=== PATIENT | female | born 1995 | race Caucasian/White ===

== ENCOUNTER 2021-08-14 12:26 | Emergency (ER) | payer OTHER ==
[~2021-08-14] VITALS: Ht 165.1 cm; Wt 70.3 kg
[2021-08-14 12:37] VITALS: BP 125/87
[2021-08-14] MEDS ORDERED: AUGMENTIN 875-1 EACH PO (13:40)
== END 2021-08-14 15:14 | disposition home or self-care (01) ==
LOC: ER 12:26
DX: S51.811A Laceration without foreign body of right forearm, initial encounter (principal); S40.211A Abrasion of right shoulder, initial encounter; W54.0XXA Bitten by dog, initial encounter; Y93.89 Activity, other specified; Y92.89 Other specified places as the place of occurrence of the external cause; Y99.8 Other external cause status